=== PATIENT | female | born 1985 | race Caucasian/White ===

== ENCOUNTER 2023-11-24 05:12 | Emergency (ER) | payer OTHER ==
[~2023-11-24] VITALS: Ht 162.6 cm; Wt 91.0 kg
[2023-11-24 05:31] VITALS: O2SAT 98
[2023-11-24 06:01] LABS: BASOPHILS % 0.6 % (0.0-2.0); EOSINOPHILS % 1.3 % (0.0-5.0); HEMATOCRIT. 35.4 % (36.0-48.0); HEMOGLOBIN. 12.1 g/dL (12.0-16.0); LYMPHOCYTES % 21.5 % (20.0-50.0); MEAN CORPUSCULAR HEMOGLOBIN 27.6 pg (28.0-32.0); MEAN CORPUSCULAR HGB CONC 34.1 g/dL (31.0-37.0); MEAN PLATELET VOLUME 9.1 fl (7.4-10.4); MONOCYTES % 6.6 % (2.0-8.0); PLATELET 305 x1000/uL (130-400); RED BLOOD CELL COUNT 4.37 mill/uL (4.2-5.4); RED CELL DISTRIBUTION WIDTH 15.5 % (11.6-14.6); WHITE BLOOD COUNT 8.5 x1000/uL (4.5-11.0)
[2023-11-24 06:12] LABS: CARBON DIOXIDE 21 mEq/L (21-32); CHLORIDE 107 mEq/L (98-107); POTASSIUM 3.4 mEq/L (3.5-5.1); SODIUM 135 mEq/L (136-145)
[2023-11-24 06:13] LABS: CALCIUM 9.3 mg/dL (8.7-10.4)
[2023-11-24] MEDS: ONDANSETRON HCL 4MG/2ML INJ IV ONE (06:17)
[2023-11-24] MEDS: FAMOTIDINE 20MG/2ML VIAL IV ONE (06:17)
[2023-11-24] MEDS: LACTATED RINGERS 1,000 ML IV ONE (06:17)
[2023-11-24] MEDS: MORPHINE SULFATE 4 MG/ML INJ (FOR IV/IM USE) IV ONE (06:17)
[2023-11-24 06:18] LABS: CREATININE 0.8 mg/dL (0.6-1.0); GLUCOSE 87 mg/dL (70-105); UREA NITROGEN BLOOD 13 mg/dL (9-23)
[2023-11-24 06:20] LABS: ALANINE AMINOTRANSFERASE 10 IU/L (10-49); ALBUMIN 4.3 g/dL (3.2-4.8); ASPARTATE AMINOTRANSFERASE 18 IU/L (<34); BILIRUBIN TOTAL 0.2 mg/dL (0.1-1.0); PROTEIN TOTAL 7.4 g/dL (6.0-8.3)
[2023-11-24 06:33] LABS: BILIRUBIN DIRECT < 0.1 mg/dL (<=3.0)
[2023-11-24 06:52] LABS: CLARITY URINE CLOUDY (CLEAR); COLOR URINE YELLOW (YELLOW); GLUCOSE URINE NEGATIVE (NEGATIVE); KETONES URINE NEGATIVE (NEGATIVE); LEUKOCYTE ESTERASE URINE NEGATIVE (NEGATIVE); NITRITE URINE NEGATIVE (NEGATIVE); OCCULT BLOOD URINE NEGATIVE (NEGATIVE); PH URINE 6.5 (4.5-8.0); PROTEIN URINE NEGATIVE (NEGATIVE); SPECIFIC GRAVITY URINE 1.028 (1.005-1.030); UROBILINOGEN URINE 0.2 E.U./dL (0.2-1.0)
[2023-11-24 07:08] LABS: HCG SCREEN NEGATIVE
[2023-11-24 07:22] LABS: SQUAMOUS EPITHELIAL CELL URINE 3+ /lpf (RARE/1+)
[2023-11-24 07:23] LABS: BACTERIA URINE 3+; RBC URINE NONE SEEN /hpf (0-2); WBC URINE 0-2 /hpf (0-2)
[2023-11-24] MEDS: KETOROLAC 15MG/ML VIAL IV ONE (08:32)
[2023-11-24] MEDS ORDERED: TAMS-11 MT (09:39)
[2023-11-24] MEDS ORDERED: IBUP-2029 MT (09:39)
[2023-11-24 09:46] VITALS: BP 108/64; PULSE 66; RESP 17; TEMP 36.83628; O2SAT 100
== END 2023-11-24 09:55 | disposition home or self-care (01) ==
LOC: ER 05:12
DX: N20.0 Calculus of kidney (principal)
CPT/HCPCS: 80076; 80048; 81003; 84703; 83690; 85025; 86850; 86900; 86901; 36415; 74176; 93005; 96361; 96374; 96375; 99285; J3490; J1885; J2405; J2270; J7120; Z7610 ×4